=== PATIENT | female | born 1960 | race Caucasian/White ===

== ENCOUNTER 2022-12-07 09:33 | Emergency (ER) | payer OTHER, SELFPAY ==
--- NOTE | ~2022-12-07 | XR_ITS ---
EXAMINATION: XR shoulder RT min 2V DATE: 12/07/2022 10:06 INDICATION: Right shoulder pain. TECHNIQUE: 4 views of right shoulder were obtained. COMPARISON: None. FINDINGS: Bone alignment is normal. No fracture. There is moderate osteoarthritis of glenohumeral keenan nt and acromioclavicular joint. IMPRESSION: 1. Polyarticular osteoarthritis. Reviewed, dictated and finalized at location A.
--- NOTE | ~2022-12-07 | CT_ITS ---
EXAMINATION: CT cervical spine wo con DATE: 12/07/2022 10:19 INDICATION: Right neck pain radiating to the right arm. TECHNIQUE: Computed tomography (CT) of the cervical spine was performed without intravenous contrast. Automated exposure control and iterative reconstruction technique were employed. The dose-length pro duct was 441.37 mGy-cm. COMPARISON: None FINDINGS: Bone alignment is normal. Vertebral body heights are normal. There is severely decreased di sc height at C4-C5, C5-C6, and C6-C7. The following disc levels are specifically discussed: C2-C3: There is severe left uncovertebral joint osteoarthritis. There is mild right and severe left f acet joint osteoarthritis. There is moderate left neural foraminal stenosis. There is no central berta l stenosis. C3-C4: There is mild bilateral uncovertebral joint osteoarthritis. There is mild left facet joint ost eoarthritis. There is no neural foraminal stenosis. There is no central canal stenosis. C4-C5: There is severe bilateral uncovertebral joint osteoarthritis. There is mild right and severe l eft facet joint osteoarthritis. There is mild bilateral neural foraminal stenosis. There is mild cent ral canal stenosis. C5-C6: There is severe bilateral uncovertebral joint osteoarthritis. There is mild right facet joint osteoarthritis. There is mild bilateral neural foraminal stenosis. There is mild central canal stenos is. C6-C7: There is severe bilateral uncovertebral joint osteoarthritis. There is mild right and moderate left facet joint osteoarthritis. There is mild bilateral neural foraminal stenosis. There is mild ce ntral canal stenosis. C7-T1: There is no uncovertebral joint osteoarthritis. There is mild bilateral facet joint osteoarthr itis. There is no neural foraminal stenosis. There is no central canal stenosis. IMPRESSION: 1. Severe cervical spondylosis. Reviewed, dictated and finalized at location A.
[2022-12-07 09:37] VITALS: BP 157/87; PULSE 99; RESP 20; TEMP 36.3; O2SAT 100
--- NOTE | 2022-12-07 09:51 | ED.NECK ---
HPI - Neck Pain/Injury General Chief Complaint: Neck Pain/Injury Stated Complaint: right arm pain Time Seen by Provider: 12/07/22 09:40 Source: patient Mode of arrival: ambulatory Limitations: no limitations History of Present Illness HPI Narrative: This is a 62 year old female that presents to the ER for right sided neck pain. Ongoing over the last 2 days. No known injury or trauma. Reports the pain has kept her from being able to sleep well. She has taken anti-inflammatories and applied Lidocaine patch with some relief. Reports the pain radiates into her right arm. Denies fever, erythema, edema, or numbness. Related Data Allergies Allergy/AdvReac Type Severity Reaction Status Date / Time No Known Allergies Allergy Mild Verified 12/07/22 09:41 Review of Systems Review of Systems: CONSTITUTIONAL: Denies fever SKIN: Denies rash MUSCULOSKELETAL: Reports joint pain, and myalgia. NEUROLOGIC: Denies numbness, or weakness. All systems reviewed & are unremarkable except as noted in HPI and below PMFSH Past Medical History Medical History (Updated 12/07/22 @ 11:14 by Columba Richmond PA-C) No active medical problems Social History Social History (Updated 12/07/22 @ 09:53 by Columba Richmond PA-C) Substance use: never Exam Narrative: GENERAL: Well-appearing, well-nourished, and in no acute distress. HEAD: Normocephalic, atraumatic. EYES: EOMI. NECK: No midline spinal tenderness CHEST: Clear to auscultation. No respiratory distress. No wheezes rales or rhonchi HEART: Regular rate and rhythm. No murmur heard. Normal peripheral pulses. EXTREMITIES: Normal range of motion. No edema. Strength equal in bilateral upper and lower extremities (5/5) SKIN: Warm, dry, no rash. NEURO: No focal deficits. Alert and oriented x3. PSYCH: Normal mood and affect Course Course Emergency Course: Patient updated on workup and agrees with plan of care Vital Signs Vital signs: Vital Signs Temperature 97.4 F L 12/07/22 09:37 Pulse Rate 99 12/07/22 09:37 Respiratory Rate 20 12/07/22 09:37 Blood Pressure 157/87 H 12/07/22 09:37 Pulse Oximetry 100 12/07/22 09:37 Oxygen Delivery Room Air 12/07/22 09:37 Temperature 97.4 F L 12/07/22 09:37 Pulse Rate 99 12/07/22 09:37 Respiratory Rate 20 12/07/22 09:37 Blood Pressure 157/87 H 12/07/22 09:37 Pulse Oximetry 100 12/07/22 09:37 Oxygen Delivery Room Air 12/07/22 09:37 MDM - Neck Pain/Injury MDM Narrative Medical decision making narrative: Patient presents to the ER for right sided neck pain radiating into the arm. No known injury or trauma. She is neurologically intact. Right shoulder x-ray shows polyarticular osteoarthritis. CT scan of the cervical spine shows severe cervical spondylosis. Patient was updated on work-up and agrees with plan of care. Instructed to rest, ice and take [id number] pain medication as needed. Will be prescribed muscle relaxer for pain. Also will be prescribed steroid taper. She was instructed to follow-up with neurosurgery. She was given warnings to return to the ER Differential Diagnosis Differential diagnosis: Likely disc disorder of cervical region, cervical radiculopathy, strain of neck muscle and other (shoulder sprain, rotator cuff tendinitis) Imaging Data Radiologist's impression: ITS Impressions Shoulder X-Ray 12/07/22 10:33 IMPRESSION: 1. Polyarticular osteoarthritis. Cervical Spine CT 12/07/22 10:39 IMPRESSION: 1. Severe cervical spondylosis. Critical Care Time Critical Care Time Critical Care Time: No Discharge Plan Discharge Clinical Impression: Cervical radiculopathy Patient Disposition: Home, Self-Care Condition: Stable Instructions: Cervical Radiculopathy (ED) Additional Instructions: Return to the ER if you experience redness and swelling of your arm, weakness, numbness, or any other symptoms that are concerning to you Rest, use
[2022-12-07] MEDS: diazePAM INJ (*CRX) 10 MG/2 ML SYRINGE 5 MG IM (10:17)
[2022-12-07] MEDS: ACETAMINOPHEN 500 MG TABLET 1000 MG PO (10:18)
[2022-12-07 11:23] VITALS: BP 174/95; PULSE 86; RESP 16; O2SAT 98
== END 2022-12-07 11:26 | disposition home or self-care (01) ==
PROVIDERS: Emergency Provider Physician Assistant
DX: M54.12 Radiculopathy, cervical region (principal)
CPT/HCPCS: 72125; 73030; 96372; 99284; A9270; J3360